=== PATIENT | female | born 1980 | race Caucasian/White ===

== ENCOUNTER 2017-02-24 17:11 | Emergency (ER) | payer OTHER ==
[~2017-02-24] VITALS: Ht 167.6 cm; Wt 78.0 kg
[2017-02-24 19:25] LABS: Hepatitis B Surface Antibody Positive
[2017-02-24 19:36] LABS: Hepatitis B Surface Antigen Negative (Negative)
[2017-02-24 19:58] VITALS: BP 105/69
== END 2017-02-24 20:02 | disposition home or self-care (01) ==
LOC: ER 17:26
DX: Z77.21 Contact with and (suspected) exposure to potentially hazardous body fluids (principal); Z88.1 Allergy status to other antibiotic agents
CPT/HCPCS: 36415; 86703; 86706; 86803; 87340

== ENCOUNTER → 2019-09-05 | Outpatient (CLI) | payer OTHER | END | disposition home or self-care (01) | LOC: LAB 07:32 | PROVIDERS: ATTEND Nurse Practitioner Family | DX: Z20.828 Contact with and (suspected) exposure to other viral communicable diseases (principal) | CPT/HCPCS: 87635 ==

== ENCOUNTER → 2020-02-11 | Outpatient (CLI) | payer OTHER | END | disposition home or self-care (01) | LOC: LAB 07:48 | PROVIDERS: ATTEND Nurse Practitioner Family | DX: U07.1 COVID-19 (principal) | CPT/HCPCS: C9803; U0003 ==

== ENCOUNTER 2020-11-08 18:19 | Emergency (ER) | payer MEDICAID, OTHER ==
[~2020-11-08] VITALS: Ht 167.6 cm; Wt 81.6 kg
[2020-11-08 18:23] VITALS: BP 120/78
== END 2020-11-08 19:00 | disposition left against medical advice (07) ==
LOC: ER 18:20
DX: M79.674 Pain in right toe(s) (principal); Z53.21 Procedure and treatment not carried out due to patient leaving prior to being seen by health care provider
CPT/HCPCS: 73660

== ENCOUNTER 2024-05-25 17:31 | Emergency (ER) | payer MEDICAID ==
[~2024-05-25] VITALS: Ht 167.6 cm; Wt 68.6 kg
[2024-05-25] MEDS: LIDOCAINE VISCOUS 2% 15ML UD PO ONE (18:24)
[2024-05-25] MEDS: PANTOPRAZOLE 40 MG TAB PO ONE (18:24)
[2024-05-25] MEDS: SODIUM CHLORIDE 0.9% 1,000 ML IV ONE (18:25)
--- NOTE | 2024-05-25 18:27 | ED.PDOC ---
GI ASSESSMENT HPI Comments HPI: 44y F who presents to the ED for chief complaint of abdominal pain. - pt states she has been having epigastric abdominal pain radiating to the RUQ and back for the past 4 days - pt states the pain is sharp in nature, intermittent, with no associated exacerbating or relieving factors - pt has associated nausea and associated dizziness but otherwise vomiting, diarrhea, fever, cough, or chills, - pt states she was evaluated at [facility] yesterday and states she had ultrasound for rule out DVT which was negative and was also dx with UTI and given antibiotics and discharged - pt otherwise denies any other symptoms Past Medical History: denies Past Surgical History: denies medications: denies allergies: nkda Social History: endorses tobacco use, denies ETOH use, denies drug use HPI: Poor Historian. REVIEW OF SYSTEMS: CONSTITUTIONAL: Denies acute: fever, diaphoresis, chills, generalized weakness. HEAD: Denies acute: headache, photophobia Eyes: Denies acute: Double vision, vision loss, eye pain, eye discharge. EARS: Denies acute: tinnitus, hearing loss, ear discharge, ear pain, THROAT: Denies acute: sore throat, swelling, difficulty swallowing , pain with swallowin g, change in voice. NECK: Denies acute: neck pain, neck swelling, stiff neck. HEART: Denies acute : chest pain, palpitations, LUNGS: Denies acute: SOB, wheezing, cough, hemoptysis ABDOMEN: Denies acute: diarrhea, melena , hematemesis, hematochezia SKIN: Denies acute: rash, redness, lesions, itchiness. EXTREMITIES: Denies acute: calf pain, numbness, tingling, weakness, denies pain in extremity. Denies acute: Low back pain. Neuro: Denies acute: focal neurological deficit, motor or sensory focal neurological deficit, tremors, seizure like activity, confusion, dizziness, change in mental status, loss of bowel or bladder function, cauda equina like symptoms. : Denies acute: dysuria, hematuria, flank pain, increase in urinary frequency. PSYCH: Denies acute: hallucination, suicidal ideation, homicidal ideation. FEMALE: Denies acute: abnormal vaginal bleeding, foul odor, unusual discharge. PHYSICAL EXAM: General: no acute distress, awake and alert. Head: normocephalic, atraumatic. Neck: supple, trachea is midline, no swelling. Throat: Normal phonation. Eyes:, no erythema, no purulent discharge, no proptosis, no icterus. Heart: regular rate, regular rhythm, no significant murmur appreciated. Lungs: no apparent respiratory distress, Able to speak in full sentences. No wheezing, no rhonchi, no crackles. No stridors Clear to auscultation bilaterally. Abdomen: Epigastric and right upper quadrant tender to palpation, non distended, soft, no guarding, no rebound, + bowel sounds. Neuro: Awake, Alert, oriented to name, self, situation, follows commands GCS=15. Speech is normal. Skin: no petechia, no purpura, no cyanosis, non-pale, not jaundice. Lower extremities: --no - Pitting edema no deformity, no focal swelling, no calf TTP. Makes eye contact. moves all four extremities. Face: no apparent facial droop. Ambulating in the ED independently. ED COURSE: Chief Complaint: Abdominal Pain Time Seen by MD: 17:35 Primary Care Provider: WILLIAM Reviewed Notes: Nurses Notes, Medications, Allergies Allergies: Coded Allergies: Vancomycin (Verified Allergy, Unknown, 02/24/17) Information Source: Patient Mode of Arrival: Ambulatory Brought in by: self Past Medical History PAST MEDICAL HISTORY: Denies Surgical History: Denies all surgeries TREE SURGEON HELPER History: No Pertinent TREE SURGEON HELPER History Was a procedure done? Was a procedure done?: No GI differential Dx Differential Diagnosis: Other (DDX include Diverticulitis, colitis, gastroenteritis, acute abdomen, SBO, enteritis, constipation, volvulus, appendicitis, Gallbladder disease, choledocolithiasis, ascending cholangitis, pancreatitis, intraAbdominal mass/neoplasm, hepatitis, UTI, pylonephritis, kidney stone, aneurysm, dissection, Inflammatory bowel disease, gastroparesis, ischemic bowel, ovarian torsion, ovarian cyst/mass, tubo-ovarian abscess, , ectopic , PID, STD.) X-Ray, Labs, Meds, VS Vital Signs Date Time Temp Pulse Resp B/P (MAP) Pulse Ox O2 Delivery O2 Flow Rate FiO2 05/25/24 21:25 98.7 66 18 107/71 (83) 100 98.7 05/25/24 18:42 98.0 70 18 104/74 (84) 95 98.0 05/25/24 18:42 70 18 95 Room Air 05/25/24 18:00 66 05/25/24 17:48 98.7 91 16 103/70 (81) 99 98.7 Lab Test 05/25/24 20:28 05/25/24 20:09 05/25/24 19:35 05/25/24 18:14 Range/Units Urine Test Negative Negative Urine Opiates Screen Neg NEGATIVE Urine Fentanyl Screen Neg NEGATIVE Urine Barbiturates Screen Neg NEGATIVE Urine Phencyclidine Screen Neg NEGATIVE Urine Amphetamines Screen Neg NEGATIVE Urine Benzodiazepines Screen Neg NEGATIVE Urine Cocaine Screen Neg NEGATIVE Urine Cannabinoids Screen Pos NEGATIVE Urine Color Yellow Yellow Urine Clarity Turbid H Clear Urine pH 5.5 5.0-9.0 Urine Specific [place] 1.035 1.001-1.035 Urine Protein 1+ H Negative Urine Ketones 2+ H Negative Urine Blood 3+ H Negative /uL Urine Nitrite Negative Negative Urine Bilirubin Negative Negative Urine Urobilinogen 4 H Negative mg/dL Urine Leukocyte Esterase 1+ Negative /uL Urine RBC 65 0 - 4 /hpf Urine Microscopic WBC 12 H 0-5 /HPF Urine Squamous Epithelial Cells Few <5 /hpf Urine Bacteria Few H None Seen /hpf Urine Mucus Few None Seen Urine Glucose Normal Normal mg/dL Sodium Level 140 136-145 mmol/L Potassium Level 3.6 3.5-5.1 mmol/L Chloride Level 109 H 98-107 mmol/L Carbon Dioxide Level 23 20-31 mmol/L Anion Gap 8 5-15 Blood Urea Nitrogen 10 9-23 mg/dL Creatinine 0.90 0.550-1.02 mg/dL Glomerular Filtration Rate Calc 82 >90 mL/min BUN/Creatinine Ratio 11.1 10.0-20.0 Serum Glucose 79 74-106 mg/dL Calcium Level 9.9 8.7-10.4 mg/dL Total Bilirubin 1.2 H 0.2-1.0 mg/dL Aspartate Amino Transferase (AST) 41 H 13-40 U/L Alanine Aminotransferase (ALT) 63 H 7-40 U/L Alkaline Phosphatase 46 46-116 U/L Total Protein 8.4 H 5.7-8.2 g/dL Albumin 5.3 H 3.2-4.8 g/dL Lipase 27 12-53 U/L White Blood Count 7.7 4.4-10.8 10^3/uL Red Blood Count 5.01 4.0-5.20 10^6/uL Hemoglobin 15.5 12.2-16.2 g/dL Hematocrit 44.1 36.0-46.0 % Mean Corpuscular Volume 88.0 80.0-100.0 fL Mean Corpuscular Hemoglobin 30.9 28.0-32.0 pg Mean Corpuscular Hemoglobin Concent 35.1 32.0-36.0 g/dL Red Cell Distribution Width 12.6 11.8-14.3 % Platelet Count 210 140-450 10^3/uL Mean Platelet Volume 8.9 6.9-10.8 fL Neutrophils (%) (Auto) 61.4 37.0-80.0 % Lymphocytes (%) (Auto) 31.2 10.0-50.0 % Monocytes (%) (Auto) 6.6 0.0-12.0 % Eosinophils (%) (Auto) 0.3 0.0-7.0 % Basophils (%) (Auto) 0.5 0.0-2.0 % Neutrophils # (Auto) 4.8 1.6-8.6 10 ^3/uL Lymphocytes # (Auto) 2.4 0.4-5.4 10 ^3/uL Monocytes # (Auto) 0.5 0-1.3 10 ^3/uL Eosinophils # (Auto) 0 0-0.8 10 ^3/uL Basophils # (Auto) 0 0-0.2 10 ^3/uL Nucleated Red Blood Cells 0.0 % Lactic Acid Level 1.0 0.4-2.0 mmol/L Troponin I High Sensitivity 4 </=34 ng/L Current Medications Medications (Trade) Dose Ordered Sig/Beverley Route Start Time Stop Time Status Last Admin Sodium Chloride 1,000 ml @ 1,000 mls/hr Q1H ONCE IV 05/25/24 18:00 05/25/24 18:59 DC 05/25/24 18:25 Ondansetron HCl (Zofran) 8 mg ONCE ONCE IV 05/25/24 18:00 05/25/24 18:02 DC 05/25/24 18:28 Pantoprazole Sodium (Protonix Tablet) 40 mg ONCE ONCE PO 05/25/24 18:00 05/25/24 18:02 DC 05/25/24 18:24 Lidocaine HCl (Xylocaine 2% Viscous) 10 ml ONCE ONCE PO 05/25/24 18:00 05/25/24 18:02 DC 05/25/24 18:24 Ceftriaxone Sodium 50 ml @ 100 mls/hr ONCE ONCE IV 05/25/24 21:00 05/25/24 21:29 DC 05/25/24 21:21 [place] [address] Ph: [phone] DIAGNOSTIC IMAGING Diagnostic Imaging Report : [id number] Signed PATIENT: REAGAN MUIR ACCT: [id number] UNIT: [id number] : 1980 LOC: ER ROOM / BED: / AGE / SEX: 44 / F ADM STATUS: REG ER SERVICE 1800 ORDERING PHYSICIAN: HILDA LO DO PROCEDURE(s): CXRP - CHEST PORTABLE REASON: epig pain n/v ORDER NUMBER(s): [id number], ACCESSION NUMBER(s): [id number] CHEST RADIOGRAPH Indication: epig pain n/v Technique: Single frontal view of the chest was obtained Comparison: None FINDINGS: Lines and Tubes: None Lungs: No focal consolidation. Pleura: No effusion. No pneumothorax. Cardiomediastinal contours: Unremarkable Bones: No acute osseous abnormality. IMPRESSION: 1. No acute cardiopulmonary disease. HS:Y ATED BY: KIARRA TRIANA Jr., DO DICTATED DATE/TIME: 05/25/242057 SIGNED BY: KIARRA TRIANA Jr., SIGNED DATE/TIME: 05/25/242057 CC: [address] [id number] Ph: [phone] DIAGNOSTIC IMAGING Diagnostic Imaging Report : [id number] Signed PATIENT: REAGAN MUIR ACCT: [id number] UNIT: [id number] : 1980 LOC: ER ROOM / BED: / AGE / SEX: 44 / F ADM STATUS: REG ER SERVICE 1821 ORDERING PHYSICIAN: HILDA LO DO PROCEDURE(s): ABDL - ABDOMEN LIMITED REASON: RUQ epig pain ORDER NUMBER(s): [id number], ACCESSION NUMBER(s): [id number] INDICATION: RUQ epig pain TECHNIQUE: Multiple real-time sonographic images of the abdomen were obtained. COMPARISON: None reported CT 05/25/2024 is not available for comparison. FINDINGS: No The liver measures 11.4 cm liver cm. No intrahepatic biliary ductal dilatation is noted. The gallbladder wall measures 0.15 cm and is unremarkable. No gallstones or sludge is seen. The common duct measures 0.38 cm and is unremarkable. No pericholecystic fluid is noted. Negative ultrasound Philip's sign The right kidney measures 9.5 cm. No hydronephrosis. Nonobstructing calculus right kidney The left kidney measures 9.7 cm. No hydronephrosis. The pancreas is not well visualized due to obscuration from bowel gas. The visualized portions of the IVC and aorta are grossly unremarkable. IMPRESSION: 1. 11.4 cm liver. 2. Gallbladder is mildly distended with no gallstones. 3. HS:Y ATED BY: KIARRA TRIANA Jr., DO DICTATED DATE/TIME: 05/25/241942 SIGNED BY: KIARRA TRIANA Jr., SIGNED DATE/TIME: 05/25/241942 CC: [place] [address] Ph: [phone] DIAGNOSTIC IMAGING Diagnostic Imaging Report : [id number] Signed PATIENT: REAGAN MUIR ACCT: [id number] UNIT: [id number] : 1980 LOC: ER ROOM / BED: / AGE / SEX: 44 / F ADM STATUS: REG ER SERVICE 1821 ORDERING PHYSICIAN: HILDA LO DO PROCEDURE(s): ABPLIV - CT AB PEL WITH IV CON ONLY REASON: epig ruq pain ORDER NUMBER(s): [id number], ACCESSION NUMBER(s): [id number] Indication: epig ruq pain Technique: CT axial images of the abdomen and pelvis are obtained with intravenous contrast. Coronal and sagittal reformats were obtained. Radiation Dose Information: CTDI volume is 11.4 mGy. Dose-length product is 637 mGy*cm Comparison: None FINDINGS: Lung bases demonstrate atelectasis. The adrenal glands unremarkable. Splenic hypodense lesion measuring 1 cm. Pancreas is unremarkable. Fatty infiltration along the falciform. No CT eviden ce for cholelithiasis. Kidneys demonstrate no hydronephrosis. Stomach is partially distended. Small bowel loops are normal in caliber. Colonic diverticular disease. Moderate volume stool within the colon. No secondary signs for appendicitis. Abdominal aorta normal in caliber. Bladder is partially distended. Intrauterine device. No free pelvic fluid. No inguinal lymphadenopathy. No acute osseous abnormality. IMPRESSION: 1. No CT evidence for acute abnormality of the abdomen / pelvis. 2. Intrauterine device. 3. Colonic diverticulae 4. Splenic hypodense lesion measuring 1 cm which can be further characterized with multiphasic MRI abdomen with and without contrast in the nonemergent setting. 5. Other findings as described. ATED BY: JULIO CÉSAR SAUCEDO MD DICTATED DATE/TIME: 05/25/242141 SIGNED BY: JULIO CÉSAR SAUCEDO MD SIGNED DATE/TIME: 05/25/242141 CC: Time of 1ST Reevaluation: 22:11 Reevaluation 1ST: Improved Patient Education/Counseling: Diagnosis, Treatment Family Education/Counseling: No Family Present Comments Patient presented with the above HPI.---abdominal pain---workup was initiated. patient was found with the above mentioned diagnosis. the following medications were ordered: please refer to order lists of meds and tests obtained by myself Dr. Lo. Patient ED course and VS have been stabilized. Patient has been reassessed in the ED and remained in a stable condition. Pertinent incidental findings were discussed with the patient and/or family. Patient/family voices understanding and is agreeable with plan. Patient has been observed in the ED adequate length of time to insure improvement/stability. Escalation of care considered: Consideration of escalation to observation or admission Patient was DISCHARGED home in a stable condition. All the reports of any imaging studies that were ordered by myself were reviewed by myself. Departure 1 Departure Time of Disposition: 22:07 Impression: Primary Impression: Urinary tract infection Additional Impressions: Abnormal finding on CT scan Epigastric abdominal pain Disposition: HOME / SELF CARE / HOMELESS Condition: Stable Additional Instructions: Additional discharge instructions: You MUST follow-up with your primary care/family doctor in 1 to 2 days. If you are unable to see your primary care/family doctor, please return to our emergency room for re-assessment and re-evaluation in 1 to 2 days. Return to the emergency room here in our facility or to the nearest ER [facility] if your symptoms change or worsen. CONSULTATIONS: you MUST Follow-up for consultation as soon as possible with: -gastroenterology in 1-2 days. Please call for appointment. You MUST call the consultants office yourself to make an appointment. You may need to arrange that through your insurance and/or your primary/family doctor. If you are unable to see the senior application security consultant in 1 to 2 days, you must return to our emergency room (or any other ER of your choice) for re-assessment and re- evaluation. Adequate fluid hydration. Avoid fatty greasy spicy food. Avoid caffeinated products. Avoid NSAIDs. Below is a copy of your radiological report for follow up: [place] [address] Ph: [phone] DIAGNOSTIC IMAGING Diagnostic Imaging Report : [id number] Signed PATIENT: REAGAN MUIR ACCT: [id number] UNIT: [id number] : 1980 LOC: ER ROOM / BED: / AGE / SEX: 44 / F ADM STATUS: REG ER SERVICE 1821 ORDERING PHYSICIAN: HILDA LO DO PROCEDURE(s): ABDL - ABDOMEN LIMITED REASON: RUQ epig pain ORDER NUMBER(s): [id number], ACCESSION NUMBER(s): [id number] INDICATION: RUQ epig pain TECHNIQUE: Multiple real-time sonographic images of the abdomen were obtained. COMPARISON: None reported CT 05/25/2024 is not available for comparison. FINDINGS: No The liver measures 11.4 cm liver cm. No intrahepatic biliary ductal dilatation is noted. The gallbladder wall measures 0.15 cm and is unremarkable. No gallstones or sludge is seen. The common duct measures 0.38 cm and is unremarkable. No pericholecystic fluid is noted. Negative ultrasound Philip's sign The right kidney measures 9.5 cm. No hydronephrosis. Nonobstructing calculus right kidney The left kidney measures 9.7 cm. No hydronephrosis. The pancreas is not well visualized due to obscuration from bowel gas. The visualized portions of the IVC and aorta are grossly unremarkable. IMPRESSION: 1. 11.4 cm liver. 2. Gallbladder is mildly distended with no gallstones. 3. HS:Y ATED BY: KIARRA TRIANA Jr., DO DICTATED DATE/TIME: 05/25/241942 SIGNED BY: KIARRA TRIANA Jr., SIGNED DATE/TIME: 05/25/241942 CC: [place] [address] Ph: [phone] DIAGNOSTIC IMAGING Diagnostic Imaging Report : [id number] Signed PATIENT: REAGAN MUIR ACCT: [id number] UNIT: [id number] : 1980 LOC: ER ROOM / BED: / AGE / SEX: 44 / F ADM STATUS: REG ER SERVICE 1821 ORDERING PHYSICIAN: HILDA LO DO PROCEDURE(s): ABPLIV - CT AB PEL WITH IV CON ONLY REASON: epig ruq pain ORDER NUMBER(s): [id number], ACCESSION NUMBER(s): [id number] Indication: epig ruq pain Technique: CT axial images of the abdomen and pelvis are obtained with intravenous contrast. Coronal and sagittal reformats were obtained. Radiation Dose Information: CTDI volume is 11.4 mGy. Dose-length product is 637 mGy*cm Comparison: None FINDINGS: Lung bases demonstrate atelectasis. The adrenal glands unremarkable. Splenic hypodense lesion measuring 1 cm. Pancreas is unremarkable. Fatty infiltration along the falciform. No CT evidence for cholelithiasis. Kidneys demonstrate no hydronephrosis. Stomach is partially distended. Small bowel loops are normal in caliber. Colon ic diverticular disease. Moderate volume stool within the colon. No secondary signs for appendicitis. Abdominal aorta normal in caliber. Bladder is partially distended. Intrauterine device. No free pelvic fluid. No inguinal lymphadenopathy. No acute osseous abnormality. IMPRESSION: 1. No CT evidence for acute abnormality of the abdomen / pelvis. 2. Intrauterine device. 3. Colonic diverticulae 4. Splenic hypodense lesion measuring 1 cm which can be further characterized with multiphasic MRI abdomen with and without contrast in the nonemergent setting. 5. Other findings as described. ATED BY: JULIO CÉSAR SAUCEDO MD DICTATED DATE/TIME: 05/25/242141 SIGNED BY: JULIO CÉSAR SAUCEDO MD SIGNED DATE/TIME: 05/25/242141 CC: [place] [address] Ph: [phone] DIAGNOSTIC IMAGING Diagnostic Imaging Report : [id number] Signed PATIENT: REAGAN MUIR ACCT: [id number] UNIT: [id number] : 1980 LOC: ER ROOM / BED: / AGE / SEX: 44 / F ADM STATUS: REG ER SERVICE 1800 ORDERING PHYSICIAN: HILDA LO DO PROCEDURE(s): CXRP - CHEST PORTABLE REASON: epig pain n/v ORDER NUMBER(s): [id number], ACCESSION NUMBER(s): [id number] CHEST RADIOGRAPH Indication: epig pain n/v Technique: Single frontal view of the chest was obtained Comparison: None FINDINGS: Lines and Tubes: None Lungs: No focal consolidation. Pleura: No effusion. No pneumothorax. Cardiomediastinal contours: Unremarkable Bones: No acute osseous abnormality. IMPRESSION: 1. No acute cardiopulmonary disease. HS:Y ATED BY: KIARRA TRIANA Jr., DO DICTATED DATE/TIME: 05/25/242057 SIGNED BY: KIARRA TRIANA Jr., DO SIGNED DATE/TIME: 05/25/242057 CC: e-Prescriptions Nitrofurantoin Monohydrate Mac (Macrobid) 100 Mg Cap 100 MG PO BID for 7 Days, #14 CAP Prov: HILDA LO DO 05/25/24 Discharged With: Self Critical Care Note Critical Care Time?: No I personally scribed for HILDA LO DO ([email or web address]) on 05/25/24 at 18:26. Electronically submitted by Ranjeet Kwon ([facility]). I personally scribed for HILDA LO DO ([facility]) on 05/25/24 at 19:01. Electronically submitted by Ranjeet Kwon ([facility]). I personally scribed for HILDA LO DO ([facility]) on 05/25/24 at 19:52. Electronically submitted by Ranjeet Kwon ([facility]). I personally scribed for HILDA LO DO ([facility]) on 05/25/24 at 21:46. Electronically submitted by Ranjeet Kwon ([facility]). HILDA LO DO May 25, 2024 18:26
[2024-05-25] MEDS: ONDANSETRON HCL 4 MG/2 ML VIAL IV ONE (18:28)
[2024-05-25 18:49] LABS: Basophils # (auto) 0 10 ^3/uL (0-0.2); Basophils % (auto) 0.5 % (0.0-2.0); Eosinophils # (auto) 0 10 ^3/uL (0-0.8); Eosinophils % (auto) 0.3 % (0.0-7.0); Hematocrit 44.1 % (36.0-46.0); Hemoglobin 15.5 g/dL (12.2-16.2); Lymphocytes # (auto) 2.4 10 ^3/uL (0.4-5.4); Lymphocytes % (auto) 31.2 % (10.0-50.0); Mean Corpuscular Hemoglobin 30.9 pg (28.0-32.0); Mean Corpuscular Hgb Conc. 35.1 g/dL (32.0-36.0); Monocytes # (auto) 0.5 10 ^3/uL (0-1.3); Monocytes % (auto) 6.6 % (0.0-12.0); Neutrophils # (auto) 4.8 10 ^3/uL (1.6-8.6); Neutrophils % (auto) 61.4 % (37.0-80.0); Platelet Count (auto) 210 10^3/uL (140-450); Red Blood Cells 5.01 10^6/uL (4.0-5.20); Red Cell Distribution Width 12.6 % (11.8-14.3); White Blood Cell 7.7 10^3/uL (4.4-10.8)
[2024-05-25] MEDS: IOHEXOL 300 MG/ML 100ML BOTTLE IJ ONE (19:20)
--- NOTE | 2024-05-25 19:45 | DVH ---
INDICATION: RUQ epig pain TECHNIQUE: Multiple real-time sonographic images of the abdomen were obtained. COMPARISON: None reported CT 05/25/2024 is not available for comparison. FINDINGS: No The liver measures 11.4 cm liver cm. No intrahepatic biliary ductal dilatation is noted . The gallbladder wall measures 0.15 cm and is unremarkable. No gallstones or sludge is seen. The co mmon duct measures 0.38 cm and is unremarkable. No pericholecystic fluid is noted. Negative ultrasou nd Philip's sign The right kidney measures 9.5 cm. No hydronephrosis. Nonobstructing calculus right kidney The left k idney measures 9.7 cm. No hydronephrosis. The pancreas is not well visualized due to obscuration from bowel gas. The visualized portions of the IVC and aorta are grossly unremarkable. IMPRESSION: 1. 11.4 cm liver. 2. Gallbladder is mildly distended with no gallstones. 3. HS:Y
[2024-05-25 20:22] LABS: Alkaline Phosphatase 46 U/L (46-116); Anion Gap 8 (5-15); BUN/Creatinine Ratio 11.1 (10.0-20.0); Blood Urea Nitrogen 10 mg/dL (9-23); Calcium 9.9 mg/dL (8.7-10.4); Carbon Dioxide 23 mmol/L (20-31); Glucose 79 mg/dL (74-106); Lipase 27 U/L (12-53); Potassium 3.6 mmol/L (3.5-5.1); Sodium 140 mmol/L (136-145)
[2024-05-25 20:23] LABS: Bilirubin, Total 1.2 mg/dL (0.2-1.0)
[2024-05-25 20:24] LABS: Alanine Aminotransferase 63 U/L (7-40); Albumin 5.3 g/dL (3.2-4.8); Aspartate Aminotransferase 41 U/L (13-40); Chloride 109 mmol/L (98-107); Total Protein 8.4 g/dL (5.7-8.2)
[2024-05-25 20:28] LABS: Urine Bacteria FEW /hpf (None Seen); Urine Blood 3+ /uL (Negative); Urine Clarity Turbid (Clear); Urine Color Yellow (Yellow); Urine Mucus FEW (None Seen); Urine Protein, UAD 1+ (Negative); Urine Specific Gravity 1.035 (1.001-1.035); Urine Squamous Epithelial Cell FEW /hpf (<5); Urine Urobilinogen 4 mg/dL (Negative); Urine WBC 12 /HPF (0-5); Urine pH 5.5 (5.0-9.0)
[2024-05-25 20:39] LABS: Cannabinoid Screen, Urine Pos (NEGATIVE)
[2024-05-25 20:40] LABS: Amphetamine Screen, Urine Neg (NEGATIVE); Barbiturate Scree,Urine Neg (NEGATIVE); Benzodiazephine Screen, Urine Neg (NEGATIVE); Cocaine Screen, Urine Neg (NEGATIVE); Opiate Scree,Urine Neg (NEGATIVE); Phencyclidine Screen, Urine Neg (NEGATIVE)
--- NOTE | 2024-05-25 21:01 | DVH ---
CHEST RADIOGRAPH Indication: epig pain n/v Technique: Single frontal view of the chest was obtained Comparison: None FINDINGS: Lines and Tubes: None Lungs: No focal consolidation. Pleura: No effusion. No pneumothorax. Cardiomediastinal contours: Unremarkable Bones: No acute osseous abnormality. IMPRESSION: 1. No acute cardiopulmonary disease. HS:Y
[2024-05-25] MEDS: cefTRIAXone 1GM/50ML D5W 50 ML IV ONE (21:21)
--- NOTE | 2024-05-25 21:44 | DVH ---
Indication: epig ruq pain Technique: CT axial images of the abdomen and pelvis are obtained with intravenous contrast. Coronal and sagittal reformats were obtained. Radiation Dose Information: CTDI volume is 11.4 mGy. Dose-length product is 637 mGy*cm Comparison: None FINDINGS: Lung bases demonstrate atelectasis. The adrenal glands unremarkable. Splenic hypodense lesion measuring 1 cm. Pancreas is unremarkable. Fatty infiltration along the falciform. No CT evidence for cholelithiasis. Kidneys demonstrate no hydronephrosis. Stomach is partially distended. Small bowel loops are normal in caliber. Colonic diverticular diseas e. Moderate volume stool within the colon. No secondary signs for appendicitis. Abdominal aorta normal in caliber. Bladder is partially distended. Intrauterine device. No free pelv ic fluid. No inguinal lymphadenopathy. No acute osseous abnormality. IMPRESSION: 1. No CT evidence for acute abnormality of the abdomen / pelvis. 2. Intrauterine device. 3. Colonic diverticulae 4. Splenic hypodense lesion measuring 1 cm which can be further characterized with multiphasic MRI ab domen with and without contrast in the nonemergent setting. 5. Other findings as described.
[2024-05-25] MEDS ORDERED: NITR-87 PO (22:10)
[2024-05-25] MEDS ORDERED: PANT40TA2 PO (22:31)
[2024-05-25] MEDS: SUCRALFATE 1 GM TAB PO ONE (22:34)
[2024-05-25 22:40] VITALS: BP 115/73; PULSE 60; RESP 17; TEMP 98.6; O2SAT 98
--- NOTE | 2024-05-27 11:13 | ECG ---
[facility] Test Date: 2024-05-25 Test Time: 18:01:33 Pat Name: REAGAN MUIR Department: ER Room: Gender: F Investment Specialist: YVES : 1980 Requested By: HILDA LO Order Number: [id number] Reading MD: Measurements Intervals Bedias Rate: 66 P: 77 SD: 144 QRS: 76 QRSD: 94 T: 60 QT: 418 QTc: 438 Interpretive Statements Sinus rhythm Right atrial enlargement Please click the below link to view image of tracing.
== END 2024-05-25 22:44 | disposition home or self-care (01) ==
LOC: ER 17:43 → EEVIPCON 17:43 → ER 22:44
DX: N39.0 Urinary tract infection, site not specified (principal); R93.89 Abnormal findings on diagnostic imaging of other specified body structures; Z88.1 Allergy status to other antibiotic agents
CPT/HCPCS: 36415; 71045; 74177; 76705; 80053; 80307; 81001; 81025; 83605; 83690; 84484; 85025; 93005; 96361; 96365; 96375; 99285; J0696; J2405; J7030; Q9967

== ENCOUNTER 2024-06-04 10:42 | Emergency (ER) | payer MEDICAID ==
[~2024-06-04] VITALS: Ht 170.2 cm; Wt 77.7 kg
[~2024-06-04 10:42] MED LIST: NITR-87 PO; PANT40TA2 PO
--- NOTE | 2024-06-04 11:15 | ED.PDOC ---
Adrienne. trauma (HPI) HPI Comments 44 year old female presents to the ED with chief complaint of nasal injury s/p fall. Patient reports that she had accidentally fell into her table 3 days ago, hitting her nose into the table. Patient relays that since then she has had intermittent nose bleeds and nasal pain. Patient denies any LOC, dizziness, headache, N/V, numbness, or weakness. Chief Complaint: Facial Injury Time Seen by MD: 11:10 Primary Care Provider: none Reviewed notes: Nurses Notes, Medications, Allergies Allergies: Coded Allergies: Vancomycin (Verified Allergy, Unknown, 02/24/17) Home Meds Active Scripts Pantoprazole Sodium Sesquihydr (Protonix) 40 Mg Tab, 40 MG PO DAILY for 10 Days, #10 TAB Prov:HILDA LO DO 05/25/24 Nitrofurantoin Monohydrate Mac (Macrobid) 100 Mg Cap, 100 MG PO BID for 7 Days, #14 CAP Prov:HILDA LO DO 05/25/24 Information Source: Patient Mode of Arrival: Ambulatory Severity: Mild Timing: Days Duration: Since onset Prehospital treatment: None Location: Nose Mechanism: Fall Past Medical History PAST MEDICAL HISTORY: Denies Surgical History: Denies all surgeries SPORT INTERN History: No Pertinent SPORT INTERN History Family History Family History: Reviewed,noncontributory to illness Social History Smoker: Non-Smoker Alcohol: Rarely Drugs: Marijuana Lives In: Home Constitutional: denies: chills, diaphoresis, fatigue, fever, malaise, sweats, weakness, others EENTM: reports: nose bleeding, nose pain; denies: blurred vision, double vision, ear bleeding, ear discharge, ear drainage, ear pain, ear ringing, eye pain, eye redness, hearing loss, mouth pain, mouth swelling, nasal discharge, nose congestion, photophobia, tearing, throat pain, throat swelling, voice changes, others Respiratory: denies: cough, hemoptysis, orthopnea, SOB at rest, shortness of breath, SOB with excertion, stridor, wheezing, others Cardiovascular: denies: chest pain, dizzy spells, diaphoresis, Dyspnea on exertion, edema, irregular heart beat, left arm pain, lightheadedness, palpitations, PND, syncope, others Gastrointestinal: denies: abdomen distended, abdominal pain, blood streaked bowels, constipated, diarrhea, dysphagia, difficulty swallowing, hematemesis, melena, nausea, poor appetite, poor fluid intake, rectal bleeding, rectal pain, vomiting, others Genitourinary: denies: abnormal vagina bleeding, burning, dyspareunia, dysuria, flank pain, frequency, hematuria, incontinence, pain, , vagina discharge, urgency, others Neurological: denies: dizziness, fainting, headache, left sided numbness, left sided weakness, numbness, paresthesia, pre-existing deficit, right sided numbness, right sided weakness, seizure, speech problems, tingling, tremors, weakness, others Musculoskeletal: denies: back pain, gout, joint pain, joint swelling, muscle pain, muscle stiffness, neck pain, others Integumetry: denies: bruises, change in color, change in hair/nails, dryness, laceration, lesions, lumps, rash, wounds, others Allergic/Immunocompromised: denies: Difficulty Healing, Frequent Infections, Hives, Itching, others Hematologic/Lymphatic: denies: anemia, blood clots, easy bleeding, easy bruising, swollen glands, others Endocrine: denies: excessive hunger, excessive sweating, excessive thirst, excessive urination, flushing, intolerance to cold, intolerance to heat, unexplained weight gain, unexplained weight loss, others Psychiatric: denies: anxiety, bipolar disorder, depression, hopeless, panic disorder, schizophrenia, sleepless, suicidal, others All Other Systems: Reviewed and Negative Physical Exam General Appearance: No Apparent Distress HEENT: Pharynx Normal, TMs Normal, Other (Mild tenderness to the nasal region with no deformity) Neck: Full Range of Motion, Non-Tender, Normal, Normal Inspection Respiratory: Chest Non-Tender, Lungs Clear, No Accessory Muscle Use, No Respiratory Distress, Normal Breath Sounds Cardiovascular: No Edema, No JVD, No Murmur, No Gallop, Normal Peripheral P ulses, Regular Rate/Rhythm Breast Exam: Deferred Gastrointestinal: No Organomegaly, Non Tender, No Pulsatile Mass, Normal Bowel Sounds, Soft Genitalia: Deferred Pelvic: Deferred Rectal: Deferred Extremities: No calf tenderness, Normal capillary refill, Normal inspection, Normal range of motion, Non-tender, No pedal edema Musculoskeletal : Apperance: Normal Neurologic: Alert, laboratory assistant II-XII nml as Tested, No Motor Deficits, Normal Affect, Normal Mood, No Sensory Deficits Cerebellar Function: Normal Reflexes: Normal Skin: Dry, Normal Color, Warm Lymphatic: No Adenopathy Was a procedure done? Was a procedure done?: No Differential Diagnosis Multiple Trauma: Fractures, Contusion X-Ray, Labs, Meds, VS Vital Signs Date Time Temp Pulse Resp B/P (MAP) Pulse Ox O2 Delivery O2 Flow Rate FiO2 06/04/24 11:03 98.4 69 17 110/59 (76) 97 98.4 X-ray of the nasal bone show: FINDINGS/IMPRESSION: There is no evidence of acute fracture or dislocation. The visualized joint space is well maintained. The alignment is anatomical. There is no radiopaque foreign body. The patient was being discharged and will follow up with the primary care doctor The patient will return to the emergency department's the condition worsens. Images Reviewed?: Images reviewed and evaluated by me Time of 1ST Reevaluation: 11:49 Reevaluation 1ST: Improved Patient Education/Counseling: Diagnosis, Treatment, Prognosis, Need For Follow Up Family Education/Counseling: Diagnosis, Treatment, Prognosis, Need For Follow Up Additional Information -Reviewed patient's previous visit(s): 05/25/24 for UTI - The following tests were ordered, and results were reviewed by me: XR nasal bones - Additional information was gathered from interviewing the following independent Historian: None - I reviewed and agreed with the following test results read by other provider: XR Nasal bones - I discussed treatments and results with medical personnel and: patient and daughter Comprehensive systems review obtained and negative except for what is stated in the HPI. Departure 1 Departure Time of Disposition: 11:48 Impression: Primary Impression: History of fall Additional Impression: Nasal contusion Qualified Codes: S00.33XA - Contusion of nose, initial encounter Disposition: HOME / SELF CARE / HOMELESS Condition: Fair Discharged With: Self Critical Care Note Critical Care Time?: No Stability Stability form required: No Heart Score Heart Score: Heart Score Response (Comments) Value History N/A 0 EKG N/A 0 Age N/A 0 Risk Factors N/A 0 Troponin N/A 0 Total 0 I personally scribed for EKATERINA MARTIN MD ([email or web address]) on 06/04/24 at 11:15. Electronically submitted by Orlin Yarbrough ([email or web address]). EKATERINA MARTIN MD Jun 04, 2024 11:15
--- NOTE | 2024-06-04 11:44 | DVH ---
CLINICAL INDICATION:trauma; r/o fx TECHNIQUE: 3 radiographic views of the nasal bones were obtained. Comparison: None FINDINGS/IMPRESSION: There is no evidence of acute fracture or dislocation. The visualized joint space is well maintained. The alignment is anatomical. There is no radiopaque foreign body.
[2024-06-04 12:25] VITALS: BP 115/67; PULSE 66; RESP 18; TEMP 98.5; O2SAT 98
[2024-06-04] MEDS: ACETAMINOPHEN 325 MG TAB PO ONE (12:28)
== END 2024-06-04 12:27 | disposition home or self-care (01) ==
LOC: ER 10:42
DX: S00.33XA Contusion of nose, initial encounter (principal); F12.90 Cannabis use, unspecified, uncomplicated; Z88.1 Allergy status to other antibiotic agents; Z79.899 Other long term (current) drug therapy; W19.XXXA Unspecified fall, initial encounter; Y93.89 Activity, other specified; Y92.89 Other specified places as the place of occurrence of the external cause; Y99.8 Other external cause status
CPT/HCPCS: 70160

== ENCOUNTER 2025-02-21 07:32 | Emergency (ER) | payer MEDICAID, OTHER ==
[~2025-02-21] VITALS: Ht 167.6 cm; Wt 82.2 kg
--- NOTE | 2025-02-21 07:43 | ED.PDOC ---
SOB-HPI HPI Comments A 44 YEAR OLD FEMALE PRESENTS TO THE ED WITH COMPLAINT OF COUGH. PATIENT STATES HE HAS BEEN EXPERIENCING COUGH, CONGESTION, AND CHEST SORENESS WHEN COUGHING FOR THE PAST 3 DAYS WITH WORSENING SYMPTOMS THAT STARTED YESTERDAY. THE PATIENT NOTES THAT SHE WAS EXPOSED TO COVID-19 AND INFLUENZA RECENTLY, AND WOULD LIKE TO BE CHECKED FOR THIS WELL. PATIENT DENIES FEVER, CHILLS, SHORTNESS OF BREATH, CHEST PAIN, ABDOMINAL PAIN, NAUSEA, VOMITING, HEADACHE, OR OTHER COMPLAINTS. NO OTHER SYMPTOMS OR MODIFYING FACTORS AT THIS TIME. PATIENT IS ALERT, ORIENTED X 4, AND HAS STEADY GAIT. Chief Complaint: Cough Time Seen by MD: 07:35 Primary Care Provider: none Reviewed notes: Nurses Notes, Medications, Allergies Information Source: Patient Mode of Arrival: Ambulatory Severity: Moderate Timing: Days Duration: Since onset, Days Context: Spontaneous Onset PE Risk Factors: None History of: Recent URI Prehospital treatment: None Modifying Factors: Nothing Associated Signs and Symptoms: Cough, Nasal Congestion If cough with SOB: Productive Past Medical History PAST MEDICAL HISTORY: Denies Surgical History: Denies all surgeries SEWAGE PLANT OPERATOR History: No Pertinent SEWAGE PLANT OPERATOR History Family History Family History: Reviewed,noncontributory to illness Social History Smoker: Non-Smoker Alcohol: Rarely Drugs: Marijuana Lives In: Home Constitutional: denies: chills, diaphoresis, fatigue, fever, malaise, sweats, weakness, others EENTM: reports: nose congestion; denies: blurred vision, double vision, ear bleeding, ear discharge, ear drainage, ear pain, ear ringing, eye pain, eye redness, hearing loss, mouth pain, mouth swelling, nasal discharge, nose bleedin g, nose pain, photophobia, tearing, throat pain, throat swelling, voice changes, others Respiratory: reports: cough; denies: hemoptysis, orthopnea, SOB at rest, shortness of breath, SOB with excertion, stridor, wheezing, others Cardiovascular: denies: chest pain, dizzy spells, diaphoresis, Dyspnea on exertion, edema, irregular heart beat, left arm pain, lightheadedness, palpitations, PND, syncope, others Gastrointestinal: denies: abdomen distended, abdominal pain, blood streaked bowels, constipated, diarrhea, dysphagia, difficulty swallowing, hematemesis, melena, nausea, poor appetite, poor fluid intake, rectal bleeding, rectal pain, vomiting, others Genitourinary: denies: abnormal vagina bleeding, burning, dyspareunia, dysuria, flank pain, frequency, hematuria, incontinence, pain, , vagina discharge, urgency, others Neurological: denies: dizziness, fainting, headache, left sided numbness, left sided weakness, numbness, paresthesia, pre-existing deficit, right sided numbness, right sided weakness, seizure, speech problems, tingling, tremors, weakness, others Musculoskeletal: denies: back pain, gout, joint pain, joint swelling, muscle pain, muscle stiffness, neck pain, others Integumetry: denies: bruises, change in color, change in hair/nails, dryness, laceration, lesions, lumps, rash, wounds, others Allergic/Immunocompromised: denies: Difficulty Healing, Frequent Infections, Hives, Itching, others Hematologic/Lymphatic: denies: anemia, blood clots, easy bleeding, easy bruising, swollen glands, others Endocrine: denies: excessive hunger, excessive sweating, excessive thirst, excessive urination, flushing, intolerance to cold, intolerance to heat, unexplained weight gain, unexplained weight loss, others Psychiatric: denies: anxiety, bipolar disorder, depression, hopeless, panic disorder, schizophrenia, sleepless, suicidal, others All Other Systems: Reviewed and Negative Physical Exam General Appearance: No Apparent Distress, Normal HEENT: Normal ENT Inspection, PERRL/EOMI, Pharynx Normal, TMs Normal Neck: Full Range of Motion, Non-Tender, Normal, Normal Inspection Respiratory: Chest Non-Tender, Lungs Clear, No Accessory Muscle Use, No Respiratory Distress, Normal Breath Sounds Cardiovascular: No Edema, No JVD, No Murmur, No Gallop, Normal Peripheral Pulses, Regular Rate/Rhythm Breast Exam: Deferred Gastrointestinal: No Organomegaly, Non Tender, No Pulsatile Mass, Normal Bowel Sounds, Soft Genitalia: Deferred Pelvic: Deferred Rectal: Deferred Extremities: No calf tenderness, Normal capillary refill, Normal inspection, Normal range of motion, Non-tender, No pedal edema Musculoskeletal : Apperance: Normal Neurologic: Alert, tetryl dissolver operator II-XII nml as Tested, No Motor Deficits, Normal Affect, Normal Mood, No Sensory Deficits Cerebellar Function: Normal Reflexes: Normal Skin: Dry, Normal Color, Warm Peripheral Pulses: 2+ carotid (R), 2+ carotid (L) Lymphatic: No Adenopathy Was a procedure done? Was a procedure done?: No Differential Dx Differential Diagnosis: Bronchitis, Pneumonia, Sinusitis, Allergic Rhinitis, Otitis Media, Pharyngitis, URI X-Ray, Labs, Meds, VS Vital Signs Date Time Temp Pulse Resp B/P (MAP) Pulse Ox O2 Delivery O2 Flow Rate FiO2 02/21/25 07:48 66 18 98 Room Air 02/21/25 07:48 98.8 66 18 125/76 (92) 98 98.8 02/21/25 07:34 97.8 66 18 125/76 98 97.8 Lab Test 02/21/25 08:00 Range/Units Influenza Type A Antigen Negative Negative Influenza Type B Antigen Negative Negative SARS-CoV-2 Antigen (Rapid) Positive NEGATIVE ORDERING PHYSICIAN: REID MEDINA PROCEDURE(s): CXRP - CHEST PORTABLE REASON: COUGH ORDER NUMBER(s): [id number], ACCESSION NUMBER(s): [id number] CHEST RADIOGRAPH INDICATION: COUGH TECHNIQUE: Single frontal view of the chest was obtained COMPARISON: XY CHEST PORTABLE on DOS: 05/25/24, XR CHEST 1 VIEW on DOS: 05/24/24 FINDINGS: Lines and Tubes: None Lungs: Clear Pleura: No effusion. No pneumothorax. Cardiomediastinal contours: Unremarkable Bones: Unremarkable IMPRESSION: No acute disease. ATED BY: NIRAV GODDARD MD DICTATED DATE/TIME: 02/21/25820 SIGNED BY: NIRAV GODDARD MD SIGNED DATE/TIME: 02/21/25820 CC: X-Ray, Labs, Meds, VS Comment EXTERNAL MEDICAL RECORDS REVIEWED: [NONE] INDEPENDENT HISTORIANS: [NONE] SOCIAL DETERMINANTS OF HEALTH: [NONE] LABS ORDERED: COVID-19 ANTIGEN, INFLUENZA A/B REVIEWED AND INTERPRETED RESULTS: COVID-19 POSITIVE IMAGING ORDERED: XR CHEST TREATMENTS ORDERED: NONE PROCEDURES PERFORMED: NONE CRITICAL CARE TIME: NONE I HAVE DISCUSSED THE PATIENT WITH THE ATTENDING PHYSICIAN DR. SALEEM AND HE AGREES WITH THE PATIENT'S PLAN OF CARE AND DISPOSITION. BASED ON HISTORY OF PRESENT ILLNESS, AND PHYSICAL EXAM, PATIENT WILL BE DISCHARGED HOME. DISCUSSED PLAN FOR DISCHARGE HOME WITH RX [PAXLOVID AND TYLENOL]. MEDICATION WARNINGS GIVEN. SHARED DECISION MAKING: PATIENT INSTRUCTED TO FOLLOW UP WITH PRIMARY CARE PROVIDER IN 1-2 DAYS FOR RE-EVALUATION OF SYMPTOMS. PATIENT VERBALIZES UNDERSTANDING TO RETURN TO ED FOR NEW OR WORSENING SYMPTOMS OR IF FOLLOW UP WITH PCP CANNOT BE OBTAINED. PATIENT FEELS COMFORTABLE GOING HOME AT THIS TIME. ALL QUESTIONS ADDRESSED AT TIME OF DISCHARGE. Images Reviewed?: Images reviewed and evaluated by me Time of 1ST Reevaluation: : Reevaluation 1ST: Improved Patient Education/Counseling: Diagnosis, Treatment, Need For Follow Up Family Education/Counseling: Diagnosis, Treatment, Need For Follow Up Medical Screening: No EMC Exist At This Time SEPSIS Sepsis Screen Date sepsis recognized/suspect: Feb 21, 2025 Time Sepsis recognized/suspect: 735 Recent Procedure: No On Antibiotic Therapy: No Respiratory Rate >20: No Heart Rate >90: No Temp<36 C (96.8 F) or >38.3 C: No SBP <90 or MAP <65 mmHG: No New Acute Mental Status Change: No Is the patient on CPAP, BIPAP,: No Physician Orders Chest Portable (02/21/25 07:39) Vital Signs Date Time Temp Pulse Resp B/P (MAP) Pulse Ox O2 Delivery O2 Flow Rate FiO2 02/21/25 07:48 66 18 98 Room Air 02/21/25 07:48 98.8 66 18 125/76 (92) 98 98.8 02/21/25 07:34 97.8 66 18 125/76 98 97.8 Departure 1 Departure Time of Disposition: : Impression: Primary Impression: SARS-CoV-2 positive Disposition: 01 HOME / SELF CARE / HOMELESS Condition: Stable Additional Instructions: FOLLOW-UP WITH PCP IN 1 TO 2 DAYS. TAKE MEDICATIONS PRESCRIBED. RETURN TO ED FOR ANY NEW OR WORSENING SYMPTOMS. e-Prescriptions Promethazine-Dm (Promethazine Dm 6.25-15 mg/5Ml) 1 Renita Reinta 5 ML PO TID, #150 ML Prov: REID MEDINA 02/21/25 Acetaminophen (Tylenol Extra Strength Fo) 500 Mg Tab 1000 MG PO BID, #30 TAB Prov: REID MEDINA 02/21/25 Nirmatrelvir/Ritonavir (PAXLOVID 10 x 150 MG & 10 x 100MG) 1 Tab Tab 1 TAB PO BID, #20 TAB Prov: REID MEDINA 02/21/25 Discharged With: Self Critical Care Note Critical Care Time?: No Stability Stability form required: No Heart Score Heart Score: Heart Score Response (Comments) Value History N/A 0 EKG N/A 0 Age N/A 0 Risk Factors N/A 0 Troponin N/A 0 Total 0 I personally scribed for REID MEDINA ([email or web address]) on 02/21/25 at 07:43. Electronically submitted by Juan Manuel Barrientos ([place]). I personally scribed for REID MEDINA ([email or web address]) on 02/21/25 at 08:30. Electronically submitted by Juan Manuel Barrientos ([place]). I personally scribed for REID MEDINA ([email or web address]) on 02/21/25 at 09:24. Electronically submitted by Juan Manuel Barrientos ([place]). REID MEDINA Feb 21, 2025 07:43
[2025-02-21 07:48] VITALS: BP 125/76; PULSE 66; RESP 18; TEMP 98.8; O2SAT 98
--- NOTE | 2025-02-21 08:24 | DVH ---
CHEST RADIOGRAPH INDICATION: COUGH TECHNIQUE: Single frontal view of the chest was obtained COMPARISON: XY CHEST PORTABLE on DOS: 05/25/24, XR CHEST 1 VIEW on DOS: 05/24/24 FINDINGS: Lines and Tubes: None Lungs: Clear Pleura: No effusion. No pneumothorax. Cardiomediastinal contours: Unremarkable Bones: Unremarkable IMPRESSION: No acute disease.
[2025-02-21 09:23] LABS: COVID19 ANTIGEN SOFIA FIA POSITIVE (NEGATIVE)
[2025-02-21] MEDS ORDERED: NIRM1TAB7 PO (09:26)
[2025-02-21] MEDS ORDERED: PROM1SOL4 PO (09:26)
[2025-02-21] MEDS ORDERED: ACET-1304 PO (09:26)
== END 2025-02-21 09:29 | disposition home or self-care (01) ==
LOC: ER 07:32
DX: U07.1 COVID-19 (principal); Z79.899 Other long term (current) drug therapy
CPT/HCPCS: 36415; 71045; 87426; 87804